=== PATIENT | female | born 1990 | race Caucasian/White ===

== ENCOUNTER 2023-04-05 13:15 | Day surgery (SDC) | payer BC ==
[2023-04-03 11:56] VITALS: BMI 24.1
[~2023-04-05 13:15] MED LIST: LIDOCAINE 1% (10MG/ML) FOR IV START INTRADERMA PRN
[2023-04-05] MEDS: LACTATED RINGERS 1,000 ML IV SCH (13:57)
[2023-04-05 14:09] VITALS: TEMP 98
[2023-04-05] MEDS ORDERED: PROPOFOL 10 MG/ML 20 ML VIAL IV ONE (14:40)
--- NOTE | 2023-04-05 15:10 | P.PCN ---
Date of Procedure: 04/05/23 Procedure(s) Performed: BRIEF HISTORY: Patient is a 32-year-old pleasant white female scheduled for an elective colonoscopy as a part of value should of intermittent rectal bleeding. She has family history of colon cancer diagnosed in her father at age 55. PROCEDURE PERFORMED: Colonoscopy With snare polypectomy PREOPERATIVE DIAGNOSIS: Rectal bleeding and family history of colon cancer.. IV sedation per Anesthesia. PROCEDURE: After informed consent was obtained, the patient, was brought into the endoscopy unit. IV sedation was administered by Anesthesia under continuous monitoring. Digital rectal examination was normal. Initially the Olympus CF-160 flexible video colonoscope was then inserted in the rectum, gradually advanced into the cecum without any difficulty. Careful examination was performed as the scope was gradually being withdrawn. Ileocecal valve and the appendiceal orifice were visualized and appeared normal. Prep was excellent. Mucosa of the cecum, ascending colon, transverse colon appeared normal. In the transverse colon there was a 3 mm polyp that was removed by snare polypectomy. In the distal sigmoid: There was a 7 mm polyp removed by cold snare polypectomy. Rest of the descending colon, sigmoid colon, and rectum appeared normal. Retroflexion was performed in the rectum and no lesions were seen. The patient tolerated the procedure well. IMPRESSION: 4 mm transverse colon polyp status post cold snare polypectomy 7 mm sigmoid; polyp status post cold snare polypectomy RECOMMENDATIONS: Findings of this examination were discussed with the patient as well as a family. She was advised to follow with the biopsy results. If the biopsy was adenoma she can have a repeat colonoscopy in 5 years.
[2023-04-05 15:36] VITALS: BP 106/67; PULSE 70; RESP 16
== END 2023-04-05 15:41 | disposition home or self-care (01) ==
LOC: ORWHC2ENDO 13:15
PROVIDERS: ATTEND Internal Medicine Gastroenterology
DX: D12.3 Benign neoplasm of transverse colon (principal); D12.5 Benign neoplasm of sigmoid colon; Z80.0 Family history of malignant neoplasm of digestive organs
CPT/HCPCS: 81025; 88305; 45385; J2704